=== PATIENT | male | born 1995 | race Caucasian/White ===

== ENCOUNTER 2017-12-30 00:45 | Outpatient (CLI) | payer SELFPAY | END 2017-12-30 00:46 | disposition critical access hospital (66) | LOC: EMS 00:45 | PROVIDERS: ATTEND Surgery | DX: R07.9 Chest pain, unspecified (principal) | CPT/HCPCS: A0425; A0427 ==

== ENCOUNTER 2017-12-30 01:04 | Emergency (ER) | payer SELFPAY ==
--- NOTE | 2017-12-30 01:21 | ED Physician Documentation ---
PD HPI CHEST PAIN - Stated complaint Stated Complaint: chest pain - Chief complaint Chief Complaint: Cardiac - History obtained from History obtained from: Patient, EMS - History of Present Illness Timing - onset: How many weeks ago (1) Timing - onset during: Rest Timing - duration: Weeks (1) Timing - details: Gradual onset, Still present, Waxing and waning Pain level max: 10 Pain level now: 0 Quality: Sharp, Pain Location: Left chest Radiation: Back Improved by: Nothing Worsened by: Inspiration Associated symptoms: Shortness of air, Nausea, Feeling faint / dizzy. No: Vomiting, General Weakness, Palpitations, Cough Similar symptoms before: Diagnosis (pericarditis) Recently seen: Not recently seen - Additional information Additional information: 22 y/o male with a history of pericarditis has developed chest pain over the past week and this is worse with inspiration and position change. He has not had nausea, diaphoresis or radiation of the pain. He has had lightheadedness associated with spiking in the pain. The pain is resolved on arrival to the ED and spikes again in the ED. He does state that last week he had some URI symptoms that have since resolved. He has a family history of coronary disease on his mothers side of the family. Review of Systems Constitutional: reports: Fatigue. denies: Fever, Chills, Myalgias Eyes: denies: Decreased vision Ears: denies: Ear pain Nose: reports: Congestion (resolved). denies: Rhinorrhea / runny nose Throat: denies: Dental pain / toothache, Sore throat Cardiac: reports: Chest pain / pressure. denies: Palpitations, Pedal edema, Calf pain Respiratory: denies: Dyspnea, Cough GI: denies: Abdominal Pain, Nausea, Vomiting : denies: Dysuria, Frequency PD PAST MEDICAL HISTORY - Present Medications Home Medications: Ambulatory Orders Medication Instructions Recorded Confirmed Fexofenadine HCl [Brianda Allergy] 1 tab PO DAILY 12/30/17 12/30/17 RX: Buspirone HCl 1 tab PO DAILY 12/30/17 12/30/17 RX: Fluoxetine HCl 1 tab PO TID 12/30/17 12/30/17 RX: Omeprazole 1 tab PO DAILY 12/30/17 12/30/17 - Allergies Allergies/Adverse Reactions: Allergies Allergy/AdvReac Type Severity Reaction Status Date / Time cyclobenzaprine Allergy Hallucinati Verified 12/30/17 01:17 [From Flexeril] ons PD ED PE NORMAL - Vitals Vital signs reviewed: Yes (normal ) - General General: Alert and oriented X 3, No acute distress, Well developed/nourished - HEENT HEENT: Atraumatic, PERRL, EOMI, Ears normal, Moist mucous membranes, Pharynx benign - Neck Neck: Supple, no meningeal sign, No bony TTP - Cardiac Cardiac: RRR, No murmur - Respiratory Respiratory: No respiratory distress, Clear bilaterally - Abdomen Abdomen: Soft, Non tender - Back Back: No CVA TTP, No spinal TTP - Derm Derm: Normal color, Warm and dry, No rash - Extremities Extremities: No deformity, No edema - Neuro Neuro: Alert and oriented X 3, 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, No motor deficit, No sensory deficit, Normal speech Eye Opening: Spontaneous Motor: Obeys Commands Verbal: Oriented GCS Score: 15 - Psych Psych: Normal mood, Normal affect Results - Vitals Vitals: Vital Signs - 24 hr 12/30/17 12/30/17 12/30/17 01:07 01:13 01:51 Temperature 36.4 C L Heart Rate 58 L 87 Respiratory 18 15 Rate Blood Pressure 116/69 118/68 Blood Pressure 116/69 [Left] O2 Saturation 97 98 12/30/17 12/30/17 12/30/17 02:29 03:02 03:40 Temperature 36.1 C L Heart Rate 74 60 63 Respiratory 18 16 14 Rate Blood Pressure 130/82 H 119/70 108/62 Blood Pressure [Left] O2 Saturation 98 97 97 Oxygen O2 Source Room air - EKG (time done) 0114 Rate: Rate (enter#) (58) Rhythm: NSR Ischemia: Q waves (inferior) Compare to prior EKG: Old EKG unavailable Computer interpretation: Agree with computer - Labs Labs: Laboratory Tests 12/30/17 12/30/17 12/30/17 01:35 01:35 01:35 WBC 6.6 RBC 4.62 L Hgb 13.9 L Hct 41.6 L MCV 90.0 MCH 30.2 MCHC 33.5 RDW 12.9 Plt Count 204 MPV 8.6 Neut # (Auto) 3.6 Lymph # (Auto) 2.2 [place] # (Auto) 0.4 Eos # (Auto) 0.3 Baso # (Auto) 0.0 Absolute Nucleated RBC 0.01 Nucleated RBC % 0.1 ESR Sodium 137 Potassium 3.7 Chloride 103 Carbon Dioxide 27 Anion Gap 7.0 BUN 22 H Creatinine 1.2 Estimated GFR (MDRD) 74 L Glucose 129 H Calcium 8.7 Total Bilirubin 0.6 AST 25 ALT 33 Alkaline Phosphatase 70 Troponin I < 0.04 C-Reactive Protein Total Protein 6.8 Albumin 4.4 Globulin 2.4 Albumin/Globulin Ratio 1.8 Lipase 23 12/30/17 12/30/17 01:35 01:35 WBC RBC Hgb Hct MCV MCH MCHC RDW Plt Count MPV Neut # (Auto) Lymph # (Auto) [place] # (Auto) Eos # (Auto) Baso # (Auto) Absolute Nucleated RBC Nucleated RBC % ESR 1 Sodium Potassium Chloride Carbon Dioxide Anion Gap BUN Creatinine Estimated GFR (MDRD) Glucose Calcium Total Bilirubin AST ALT Alkaline Phosphatase Troponin I C-Reactive Protein < 1.0 Total Protein Albumin Globulin Albumin/Globulin Ratio Lipase - Rads (name of study) 1 view chest Radiology: Prelim report reviewed (Impression: Normal single view chest.), EMP read indepedently, See rad report PD MEDICAL DECISION MAKING - ED course Complexity details: reviewed results, re-evaluated patient, considered differential, d/w patient, d/w family ED course: 22 y/o male with a history of pericarditis has developed left sided chest pain worse with inspiration or laying on the right side. He has normal diagnostics and initially he is administered IV decadron and this does not have effect rapidly so he is administered IV toradal. His inflammatory markers are nil and his EKG is normal and I do not think he has pericarditis today. I suspect pleurisy. Departure - Departure Disposition: 01 Home, Self Care Clinical Impression: Pleurisy without effusion Condition: Stable Instructions: ED Chest Pain Pleurisy Follow-Up: Herb Mendoza PA-C [Physician No Access] - Forms: Activity restrictions Discharge Date/Time: 12/30/17 03:52
[2017-12-30 01:41] LABS: BASOPHILS % (AUTO) 0.7 %; EOSINOPHILS # (AUTO) 0.3 10^3/uL (0.0-0.7); EOSINOPHILS % (AUTO) 4.8 %; HGB - HEMOGLOBIN 13.9 g/dL (14.0-18.0); LYMPHOCYTES # (AUTO) 2.2 10^3/uL (1.5-3.5); LYMPHOCYTES % (AUTO) 33.5 %; MEAN CORPUSCULAR HEMOGLOBIN 30.2 pg (27.0-31.0); MEAN CORPUSCULAR HGB CONC 33.5 g/dL (32.0-36.0); MEAN PLATELET VOLUME 8.6 fL (7.4-11.4); MONOCYTES # (AUTO) 0.4 10^3/uL (0.0-1.0); MONOCYTES % (AUTO) 6.6 %; NEUTROPHILS # (AUTO) 3.6 10^3/uL (1.5-6.6); NEUTROPHILS % (AUTO) 54.4 %; PLT - PLATELET COUNT 204 10^3/uL (130-450); RED BLOOD COUNT 4.62 10^6/uL (4.70-6.10); RED CELL DISTRIBUTION WIDTH 12.9 % (12.0-15.0); WHITE BLOOD COUNT 6.6 x10^3/uL (4.8-10.8)
[2017-12-30] MEDS ORDERED: DEXAMETHASONE 10 MG/ML VIAL IVP STA (01:45)
[2017-12-30 01:54] LABS: ALBUMIN 4.4 g/dL (3.2-5.5); ALBUMIN/GLOBULIN RATIO 1.8 (1.0-2.2); BILIRUBIN,TOTAL 0.6 mg/dL (0.2-1.0); CALCIUM 8.7 mg/dL (8.5-10.3); CREATININE 1.2 mg/dL (0.6-1.2); TOTAL PROTEIN 6.8 g/dL (6.7-8.2)
--- NOTE | 2017-12-30 01:57 | XRAY Report ---
Reason: chest pain Procedure Date: 12/30/2017 Accession Number: [id number] / [id number] Procedure: XR - Chest 1 View X-Ray CPT Code: 40563 FULL RESULT: EXAM: CHEST RADIOGRAPHY EXAM DATE: 12/30/2017 01:50 AM. CLINICAL HISTORY: Chest pain. COMPARISON: XR CHEST PA AND LAT 12/16/2009 8:53 PM. TECHNIQUE: 1 view. FINDINGS: Lungs/Pleura: No focal opacities evident. No pleural effusion. No pneumothorax. Mediastinum: Within exam limitations, the cardiomediastinal contour is normal. Other: None. IMPRESSION: Normal single view chest. RADIA
[2017-12-30] MEDS ORDERED: LIDOCAINE VISCOUS 2% 15 ML UDC MM STA (02:30)
[2017-12-30] MEDS ORDERED: MAG HYDROX/AL HYDROX/SIMETH 30 ML UDC PO STA (02:31)
[2017-12-30] MEDS ORDERED: KETOROLAC 60 MG/2 ML VIAL IVP STA (02:55)
[2017-12-30 03:49] VITALS: BP 108/62
== END 2017-12-30 03:52 | disposition home or self-care (01) ==
LOC: EDUNIT# → ED 01:04
DX: R09.1 Pleurisy (principal); Z86.79 Personal history of other diseases of the circulatory system; R94.31 Abnormal electrocardiogram [ECG] [EKG]
CPT/HCPCS: 36415; 71045; 80053; 83690; 84484; 85025; 85651; 86140; 93005; 96374; 96375; 99283; 99284; A9270

== ENCOUNTER 2018-07-23 17:41 | Emergency (ER) | payer MEDICAID ==
[2018-07-23 19:42] LABS: BASOPHILS # (AUTO) 0.1 10^3/uL (0.0-0.1); BASOPHILS % (AUTO) 0.8 %; EOSINOPHILS # (AUTO) 0.2 10^3/uL (0.0-0.7); EOSINOPHILS % (AUTO) 3.5 %; HGB - HEMOGLOBIN 14.9 g/dL (14.0-18.0); LYMPHOCYTES # (AUTO) 2.6 10^3/uL (1.5-3.5); LYMPHOCYTES % (AUTO) 37.2 %; MEAN CORPUSCULAR HEMOGLOBIN 29.3 pg (27.0-31.0); MEAN CORPUSCULAR HGB CONC 32.8 g/dL (32.0-36.0); MEAN CORPUSCULAR VOLUME 89.4 fL (80.0-94.0); MONOCYTES # (AUTO) 0.5 10^3/uL (0.0-1.0); MONOCYTES % (AUTO) 7.2 %; NEUTROPHILS # (AUTO) 3.6 10^3/uL (1.5-6.6); NEUTROPHILS % (AUTO) 51.3 %; PLT - PLATELET COUNT 198 10^3/uL (130-450); RED BLOOD COUNT 5.08 10^6/uL (4.70-6.10); RED CELL DISTRIBUTION WIDTH 12.8 % (12.0-15.0)
--- NOTE | 2018-07-23 19:42 | XRAY Report ---
Reason: Chest Pain Procedure Date: 07/23/2018 Accession Number: [id number] / [id number] Procedure: XR - Chest 1 View X-Ray CPT Code: 77619 FULL RESULT: EXAM: CHEST RADIOGRAPHY EXAM DATE: 07/23/2018 07:12 PM. CLINICAL HISTORY: Chest Pain. COMPARISON: CHEST 1 VIEW 12/30/2017 1:40 AM. TECHNIQUE: 1 view. FINDINGS: Lungs/Pleura: No focal opacities evident. No pleural effusion. No pneumothorax. Mediastinum: Within exam limitations, the cardiomediastinal contour is normal. Other: None. IMPRESSION: No acute intrathoracic plain film abnormality. RADIA
[2018-07-23 20:08] LABS: ALBUMIN 4.5 g/dL (3.2-5.5); ALBUMIN/GLOBULIN RATIO 1.6 (1.0-2.2); BILIRUBIN,TOTAL 0.6 mg/dL (0.2-1.0); CALCIUM 9.2 mg/dL (8.5-10.3); CREATININE 1.1 mg/dL (0.6-1.2); TOTAL PROTEIN 7.3 g/dL (6.7-8.2)
--- NOTE | 2018-07-23 20:59 | ED Physician Documentation ---
History of Present Illness - Stated complaint Stated Complaint: IRREGULAR HR - Chief complaint Chief Complaint: Cardiac - History obtained from History obtained from: Patient - History of Present Illness Timing: How many weeks ago Pain level now: 7 Improved by: no ameliorating factors Worsened by: lying supine or on his right side - Additonal information Additional information: c/o 2 weeks of intermittent chest discomfort, dull, became severe last night with intermittent/episodic rapid chest palpitations. Episode of palpitations last night felt regular and rapid and suddenly resolved when he had near- syncopal episode with lightheadedness, weakness. Review of Systems Constitutional: reports: Reviewed and negative Cardiac: reports: Chest pain / pressure, Palpitations. denies: Pedal edema, Calf pain Respiratory: reports: Reviewed and negative GI: reports: Reviewed and negative Neurologic: reports: Near syncope. denies: Headache PD PAST MEDICAL HISTORY - Past Medical History Past Medical History: Yes Cardiovascular: Valve disorder, Other GI: GERD Psych: Depression, Anxiety Other Past Medical History: pericarditis. pleurisy - Past Surgical History Past Surgical History: Yes HEENT: Tonsil/Adenoidectomy - Present Medications Home Medications: Ambulatory Orders Medication Instructions Recorded Confirmed Buspirone HCl 1 tab PO DAILY 12/30/17 12/30/17 Fexofenadine HCl [Brianda Allergy] 1 tab PO DAILY 12/30/17 12/30/17 Fluoxetine HCl 1 tab PO TID 12/30/17 12/30/17 Omeprazole 1 tab PO DAILY 12/30/17 12/30/17 - Allergies Allergies/Adverse Reactions: Allergies Allergy/AdvReac Type Severity Reaction Status Date / Time cyclobenzaprine Allergy Hallucinati Verified 12/30/17 01:17 [From Flexeri] ons - Social History Does the pt smoke?: No Smoking Status: Never smoker Does the pt drink ETOH?: Yes Substance Use and Type: Marijuana - Immunizations Immunizations are current?: Yes PD ED PE NORMAL - Vitals Vital signs reviewed: Yes - General General: Alert and oriented X 3, No acute distress, Well developed/nourished - HEENT HEENT: Moist mucous membranes - Neck Neck: Supple, no meningeal sign - Cardiac Cardiac: RRR, No murmur, No gallop, No rub - Respiratory Respiratory: No respiratory distress, Clear bilaterally - Abdomen Abdomen: Soft, Non tender - Extremities Extremities: No edema Results - Vitals Vitals: Vital Signs - 24 hr 07/23/18 07/23/18 07/23/18 17:45 20:18 20:33 Temperature 37 C Heart Rate 62 57 L Respiratory 16 18 Rate Blood Pressure 117/69 132/67 H Blood Pressure 132/72 H [Right] O2 Saturation 99 100 07/23/18 21:58 Temperature Heart Rate 59 L Respiratory 14 Rate Blood Pressure 122/80 Blood Pressure [Right] O2 Saturation 98 Oxygen O2 Source Room air - EKG (time done) No standard instances Rate: Rate (enter#) (60) Rhythm: NSR [place]: Normal Intervals: Normal SC QRS: Normal Ischemia: ST elevation c/w repol - Labs Labs: Laboratory Tests 07/23/18 07/23/18 07/23/18 19:28 19:28 19:28 WBC 7.0 RBC 5.08 Hgb 14.9 Hct 45.4 MCV 89.4 MCH 29.3 MCHC 32.8 RDW 12.8 Plt Count 198 MPV 9.0 Neut # (Auto) 3.6 Lymph # (Auto) 2.6 [place] # (Auto) 0.5 Eos # (Auto) 0.2 Baso # (Auto) 0.1 Absolute Nucleated RBC 0.00 Nucleated RBC % 0.1 Sodium 140 Potassium 4.3 Chloride 104 Carbon Dioxide 26 Anion Gap 10.0 BUN 18 Creatinine 1.1 Estimated GFR (MDRD) 82 L Glucose 89 Calcium 9.2 Total Bilirubin 0.6 AST 24 ALT 31 Alkaline Phosphatase 64 Troponin I < 0.04 Total Protein 7.3 Albumin 4.5 Globulin 2.8 Albumin/Globulin Ratio 1.6 Lipase 22 - Rads (name of study) chest xray Radiology: Prelim report reviewed, See rad report PD MEDICAL DECISION MAKING - ED course Complexity details: reviewed results, re-evaluated patient, considered differential, d/w patient ED course: Reviewed telemetry while patient was in ED; I see two episodes of PAC with compensatory pause. otherwise, no arrhythmia noted Departure - Departure Disposition: 01 Home, Self Care Clinical Impression: Palpitations Condition: Good Instructions: ED Chest Pain Atypical Unkn Cause, ED Palpitations Follow-Up: [facility] [Provider Group] [facility] [Provider Group] Discharge Date/Time: 07/23/18 22:02
[2018-07-23 21:59] VITALS: BP 122/80
== END 2018-07-23 22:02 | disposition home or self-care (01) ==
LOC: ED 17:41
DX: I49.1 Atrial premature depolarization (principal); R00.2 Palpitations; R07.89 Other chest pain
CPT/HCPCS: 36415; 71045; 80053; 83690; 84484; 85025; 93005; 99283

== ENCOUNTER 2019-01-11 15:35 | Emergency (ER) | payer MEDICAID ==
[2019-01-11 15:56] VITALS: BP 108/67
--- NOTE | 2019-01-11 15:57 | ED Physician Documentation ---
History of Present Illness - Stated complaint Stated Complaint: MALE - Chief complaint Chief Complaint: UTI - Additonal information Additional information: This is a 23-year-old male who presents with concern for pain or burning with urination. Patient states that he began developing this in the last week, and did notice little bit of redness around the tip of his urethra. He says he will intermittently have some burning when he urinates, but has not noticed any discharge from his penis. No testicular pain. He is sexually active only with his girlfriend, but he has not seen her for around 6 months. Review of Systems Constitutional: denies: Fever : reports: Dysuria, Frequency PD PAST MEDICAL HISTORY - Past Medical History Cardiovascular: Valve disorder, Other GI: GERD Psych: Depression, Anxiety - Past Surgical History Past Surgical History: Yes HEENT: Tonsil/Adenoidectomy - Present Medications Home Medications: Ambulatory Orders Medication Instructions Recorded Confirmed Buspirone HCl 1 tab PO DAILY 12/30/17 12/30/17 Fexofenadine HCl [Brianda Allergy] 1 tab PO DAILY 12/30/17 12/30/17 Fluoxetine HCl 1 tab PO TID 12/30/17 12/30/17 Omeprazole 1 tab PO DAILY 12/30/17 12/30/17 - Allergies Allergies/Adverse Reactions: Allergies Allergy/AdvReac Type Severity Reaction Status Date / Time cyclobenzaprine Allergy Hallucinati Verified 01/11/19 15:56 [From Flexeril] ons - Social History Does the pt smoke?: No Smoking Status: Never smoker Does the pt drink ETOH?: Yes Does the pt have substance abuse?: No - Immunizations Immunizations are current?: Yes - POLST Patient has POLST: No PD ED PE NORMAL - Vitals Vital signs reviewed: Yes - General General: Alert and oriented X 3, No acute distress - HEENT HEENT: Atraumatic - Respiratory Respiratory: No respiratory distress - Abdomen Abdomen: Soft, Non tender, Non distended - Male Male : Other (Circumcised penis, normal in appearance, there is no urethral discharge, no lesions. Testicles are normal in appearance nontender without lesions.) - Derm Derm: Warm and dry - Extremities Extremities: No deformity - Neuro Neuro: Alert and oriented X 3 - Psych Psych: Normal mood, Normal affect Results - Vitals Vitals: Oxygen O2 Source Room air - Labs Labs: Laboratory Tests 12/03/19 12/03/19 16:11 16:11 Urine Color YELLOW Urine Clarity CLEAR Urine pH 6.5 Ur Specific [place] 1.020 Urine Protein NEGATIVE Urine Glucose (UA) NEGATIVE Urine Ketones NEGATIVE Urine Occult Blood NEGATIVE Urine Nitrite NEGATIVE Urine Bilirubin NEGATIVE Urine Urobilinogen 0.2 (NORMAL) Ur Leukocyte Esterase NEGATIVE Ur Microscopic Review NOT INDICATED Urine Culture Comments NOT INDICATED Chlam trachomat DNA PCR NEGATIVE N.gonorrhoeae DNA (PCR) NEGATIVE T. vaginalis (PCR) NEGATIVE PD MEDICAL DECISION MAKING - ED course Complexity details: considered differential (UTI, STI, urethritis) ED course: Pt has an unremarkable genital exam, UA is negative for infection. GC/Chlam was sent but he is low risk and we will hold off on empiric treatment. I discussed the diagnostic uncertainty, need for close PCP follow up, return precautions, and patient was discharged home. Departure - Departure Disposition: 01 Home, Self Care Clinical Impression: Dysuria Condition: Good Instructions: ED Dysuria Uncertain Cause Follow-Up: Your,PCP [Other] - Within 1 week (If having continued symptoms) Comments: Your urine test looked okay today, I do not know the exact cause of your pain or burning with urination. We have sent your urine off for more testing, you will be called in the next 48 hours if we have any positive results. Please follow- up with your primary care provider, and return to the emergency department if you are having increasing pain, pain in your testicles, abdominal pain, vomiting, or fever. Discharge Date/Time: 01/11/19 16:55
[2019-01-11 16:31] LABS: BILIRUBIN,URINE NEGATIVE (NEGATIVE); GLUCOSE, URINE (UA) NEGATIVE (NEGATIVE); KETONES,URINE (UA) NEGATIVE (NEGATIVE); LEUKOCYTE ESTERASE, URINE NEGATIVE (NEGATIVE); NITRITE,URINE NEGATIVE (NEGATIVE); OCCULT BLOOD,URINE NEGATIVE (NEGATIVE); PH,URINE 6.5 PH (5.0-7.5); PROTEIN,URINE NEGATIVE (NEGATIVE); UROBILINOGEN,URINE 0.2 (NORMAL) E.U./dL (NORMAL)
[2019-01-11 16:32] LABS: CLARITY,URINE CLEAR (CLEAR)
[2019-01-11 21:09] LABS: TRICHOMONAS VAGINALIS DNA NEGATIVE (NEGATIVE)
== END 2019-01-11 16:55 | disposition home or self-care (01) ==
LOC: ED 15:35
DX: R30.0 Dysuria (principal); R35.0 Frequency of micturition
CPT/HCPCS: 81001; 81003; 87086; 87491; 87591; 87661; 99283; 99284

== ENCOUNTER 2019-04-13 11:05 | Outpatient (CLI) | payer MEDICAID ==
[2019-04-13 18:34] LABS: BASOPHILS % (AUTO) 0.5 %; EOSINOPHILS # (AUTO) 0.3 10^3/uL (0.0-0.7); EOSINOPHILS % (AUTO) 4.2 %; HGB - HEMOGLOBIN 15.5 g/dL (14.0-18.0); LYMPHOCYTES # (AUTO) 2.2 10^3/uL (1.5-3.5); LYMPHOCYTES % (AUTO) 37.9 %; MEAN CORPUSCULAR HEMOGLOBIN 29.9 pg (27.0-31.0); MEAN CORPUSCULAR HGB CONC 32.2 g/dL (32.0-36.0); MEAN CORPUSCULAR VOLUME 92.9 fL (80.0-94.0); MEAN PLATELET VOLUME 11.1 fL (7.4-11.4); MONOCYTES # (AUTO) 0.4 10^3/uL (0.0-1.0); MONOCYTES % (AUTO) 7.1 %; NEUTROPHILS # (AUTO) 2.9 10^3/uL (1.5-6.6); PLT - PLATELET COUNT 205 10^3/uL (130-450); RED BLOOD COUNT 5.18 10^6/uL (4.70-6.10); RED CELL DISTRIBUTION WIDTH 12.2 % (12.0-15.0); WHITE BLOOD COUNT 5.9 x10^3/uL (4.8-10.8)
[2019-04-13 19:16] LABS: ALBUMIN 4.7 g/dL (3.2-5.5); ALBUMIN/GLOBULIN RATIO 1.7 (1.0-2.2); ALKALINE PHOSPHATASE 51 IU/L (42-121); ALT ALANINE AMINOTRANSFERASE 30 IU/L (10-60); AST ASPARTATE AMINOTRANSFERASE 22 IU/L (10-42); BUN - BLOOD UREA NITROGEN 20 mg/dL (6-20); CALCIUM 9.4 mg/dL (8.5-10.3); CARBON DIOXIDE - CO2 28 mmol/L (21-32); CHLORIDE 103 mmol/L (101-111); CHOL/HDL RATIO 2.7 (<5.0); CHOLESTEROL 153 mg/dL; GFR - MDRD 90 (>89); GLUCOSE 84 mg/dL (70-100); HDL CHOLESTEROL 56 mg/dL; LDL CHOLESTEROL,CALCULATED 86 mg/dL; LDL/HDL RATIO 1.5 (<3.6); SODIUM 139 mmol/L (135-145); TOTAL PROTEIN 7.4 g/dL (6.7-8.2); VLDL CHOLESTEROL 11 mg/dL
[2019-04-13 19:30] LABS: HEMOGLOBIN A1C 0.55 g/dL; HEMOGLOBIN A1C % 5.3 % (4.6-6.2)
== END 2019-04-13 23:59 | disposition home or self-care (01) ==
LOC: LAB.N 11:05
PROVIDERS: ATTEND Family Medicine
DX: Z00.00 Encounter for general adult medical examination without abnormal findings (principal)
CPT/HCPCS: 36415; 80050; 80061; 83036; 83721

== ENCOUNTER 2020-06-05 16:27 | Outpatient (CLI) | payer OTHER | END 2020-06-05 16:28 | disposition home or self-care (01) | LOC: COV 16:27 | PROVIDERS: ATTEND Family Medicine | DX: U07.1 COVID-19 (principal) ==

== ENCOUNTER 2021-03-13 08:00 | Outpatient (CLI) | payer OTHER ==
[2021-03-12 18:24] LABS: BASOPHILS # (AUTO) 0.1 10^3/uL (0.0-0.1); BASOPHILS % (AUTO) 0.9 %; EOSINOPHILS # (AUTO) 0.4 10^3/uL (0.0-0.7); HCT - HEMATOCRIT 47.8 % (42.0-52.0); HGB - HEMOGLOBIN 15.7 g/dL (14.0-18.0); LYMPHOCYTES # (AUTO) 2.3 10^3/uL (1.5-3.5); LYMPHOCYTES % (AUTO) 36.7 %; MEAN CORPUSCULAR HEMOGLOBIN 29.6 pg (27.0-31.0); MEAN CORPUSCULAR HGB CONC 32.8 g/dL (32.0-36.0); MEAN CORPUSCULAR VOLUME 90.2 fL (80.0-94.0); MEAN PLATELET VOLUME 11.2 fL (7.4-11.4); MONOCYTES # (AUTO) 0.5 10^3/uL (0.0-1.0); MONOCYTES % (AUTO) 7.1 %; PLT - PLATELET COUNT 228 10^3/uL (130-450); WHITE BLOOD COUNT 6.3 x10^3/uL (4.8-10.8)
[2021-03-13 19:11] LABS: ALBUMIN 4.4 g/dL (3.2-5.5); ALBUMIN/GLOBULIN RATIO 1.3 (1.0-2.2); CALCIUM 9.5 mg/dL (8.5-10.3); CREATININE 1.1 mg/dL (0.6-1.2); POTASSIUM 3.8 mmol/L (3.5-5.0); TOTAL PROTEIN 7.7 g/dL (6.7-8.2)
== END 2021-03-13 23:59 ==
LOC: LAB.N 08:00
PROVIDERS: ATTEND Nurse Practitioner
DX: R10.9 Unspecified abdominal pain (principal)
CPT/HCPCS: 36415; 80053; 82150; 83690; 85025

== ENCOUNTER 2021-07-29 08:00 | Outpatient (CLI) | payer MEDICAID ==
[2021-07-29 23:39] LABS: CHLAMYDIA TRACHOMATIS DNA NEGATIVE (NEGATIVE); NEISSERIA GONORRHOEAE DNA NEGATIVE (NEGATIVE)
[2021-07-30 06:35] LABS: HCV AB <0.1 s/co ratio (0.0-0.9)
[2021-07-30 07:09] LABS: HIV SCREEN 4TH GENERATION Non Reactive (Non Reactive); RPR Non Reactive (Non Reactive)
[2021-07-30 09:08] LABS: HSV 2 IGG TYPE SPEC <0.91 index (0.00-0.90)
[2021-07-30 22:07] LABS: HSV IGM I/II COMBINATION <0.91 Ratio (0.00-0.90)
== END 2021-07-29 23:59 | disposition home or self-care (01) ==
LOC: LAB.N 08:00
PROVIDERS: ATTEND Nurse Practitioner
DX: Z11.3 Encounter for screening for infections with a predominantly sexual mode of transmission (principal)
CPT/HCPCS: 86592; 86695; 86696; 86803; 87086; 87389; 87491; 87591; 87661